=== PATIENT | male | born 1990 | race African-American/Black ===

== ENCOUNTER 2025-01-19 17:43 | Emergency (ER) | payer OTHER, SELFPAY ==
[2025-01-19] MEDS ORDERED: ACETAMINOPHEN 500 MG TAB ONE (18:13)
[2025-01-19] MEDS ORDERED: IBUPROFEN 400 MG TAB ONE (18:14)
[2025-01-19 18:18] LABS: Absolute Eosinophils 0.1 K/uL (0-0.5); Absolute Lymphocytes (CBC) 1.1 K/uL (0.7-4.9); Absolute Monocytes 0.5 K/uL (0.1-1.3); Absolute Neutrophil 3.3 K/uL (1.8-8.0); Basophils % 0.5 % (0-1.3); Eosinophils % 1.7 % (0-4.4); Hematocrit 43.3 % (39.6-49.0); Hemoglobin 14.7 g/dL (13.6-17.9); Lymphocytes % 21.9 % (15.3-44.8); MCH 29.4 pg (27.0-35.0); MCV 86.7 fL (80-100); MPV 7.7 fL (7.6-11.3); Monocytes % 9.1 % (3.3-12.3); Neutrophils % 66.8 % (41.7-73.7); Platelets 270 thou/uL (152-406); Red Cell Distribution Width 13.5 % (12.1-15.2)
[2025-01-19 18:32] LABS: Protime INR 1.15
--- NOTE | 2025-01-19 18:36 | RAD REPORT ---
Extremity Venous Uni Ltd CLINICAL INDICATION: Male, 34 years old.PAIN TECHNIQUE: Complete duplex sonography of the lower extremity veins was performed of the affected limb . The examination included compression for vein patency, color Doppler imaging and flow augmentation in response to distal compression of the distal external iliac, common femoral, femoral, popliteal, peroneal, tibial and great saphenous veins. [id number]. COMPARISON: No prior exams FINDINGS: Duplex sonography imaging demonstrates all deep veins examined to be fully compressible with spontane ous, phasic and augmented flow in the affected limb. IMPRESSION: No evidence of deep venous thrombosis in the left lower extremity.
[2025-01-19 18:37] LABS: Anion Gap 7.7 mEq/L (5.0-15.0); Potassium 3.7 mEq/L (3.5-5.1)
[2025-01-19] MEDS ORDERED: CLINDAMYCIN 900MG/D5W 900 MG/50 ML IVPB IV ONE (19:08)
[2025-01-19] MEDS ORDERED: NA CHLORIDE 0.9% 1,000 ML ONE (19:08)
--- NOTE | 2025-01-19 19:23 | RAD REPORT ---
EXAMINATION: Tib Fib Left VIEWS: As above CLINICAL INDICATION: Male, 34 years old. PAIN COMPARISON: No prior exam. IMPRESSION: No acute fracture. No acute soft tissue abnormality.
--- NOTE | 2025-01-19 19:52 | EDPHYS ---
Physician Documentation [facility] Name: Rudy Brown Age: 34 yrs Sex: Male : 1990 Arrival Date: 01/19/2025 Time: 17:43 Bed 5 Private MD: ED Physician Drew Jauregui HPI: 01/19 18:05 This 34 yrs old Black Male presents to ER via Ambulatory with complaints of Leg cp Swelling. 18:05 The patient presents with swelling, tenderness. The complaints affect the left escalante. cp Context: resulted from an unknown cause. 18:05 Onset: The symptoms/episode began/occurred this past Sunday. Associated signs and cp symptoms: Pertinent positives: swelling, warmth, Pertinent negatives calf tenderness, fever, numbness, trauma. Severity of symptoms: in the emergency department the symptoms are unchanged, despite home interventions. Historical: - Allergies: 17:52 No Known Allergies; ss - PMHx: 17:52 None; ss - PSHx: 17:52 None; ss - Immunization history:: Adult Immunizations up to date. - Infectious Disease History:: Denies. - Social history:: Smoking status: Reported history of juuling and/or vaping. ROS: 18:10 MS/extremity: Positive for swelling, tenderness, of the left escalante, Negative for injury cp or acute deformity, paresthesias, 18:10 Respiratory: Negative for cough, shortness of breath, wheezing, cp Exam: 18:15 Constitutional: The patient appears in no acute distress, alert, awake, cp non-diaphoretic, non-toxic, well developed, well nourished, 18:15 Head/Face: Normocephalic, atraumatic. cp 18:15 Eyes: Periorbital structures: appear normal, Conjunctiva: normal, no exudate, no injection, Sclera: no appreciated abnormality, Lids and lashes: appear normal, bilaterally, 18:15 ENT: External ear(s): are unremarkable, Nose: is normal, Mouth: Lips: moist, Oral mucosa: moist, Posterior pharynx: Airway: no evidence of obstruction, patent, 18:15 Chest/axilla: Inspection: normal, 18:15 Cardiovascular: Rate: normal, Rhythm: regular, 18:15 Respiratory: the patient does not display signs of respiratory distress, Respirations: normal, no use of accessory muscles, no retractions, labored breathing, is not present, Breath sounds: are clear throughout, no decreased breath sounds, no stridor, no wheezing, 18:15 Abdomen/GI: Exam negative for discomfort, distension, guarding, Inspection: abdomen appears normal, 18:15 Back: pain, is absent, ROM is normal, 18:15 Musculoskeletal/extremity: Extremities: noted in the left escalante: mild swelling, tenderness to palpation, mild erythema, Pulses: noted to be 2+ in the left dorsalis pedis artery, 18:15 Neuro: Orientation: to person, place \T\ time. Mentation: is normal, Vital Signs: 17:52 BP 127 / 88; Pulse 95; Resp 17; Temp 100.1(O); Pulse Ox 97% on R/A; Weight 93.44 kg; ss Height 5 ft. 8 in. ; 19:13 BP 109 / 80; Pulse 81; Resp 17; Temp 99.4; Pulse Ox 97% ; Pain 0/10; lg3 20:14 BP 113 / 80; Pulse 91; Resp 17; Temp 99; Pulse Ox 97% ; Pain 0/10; bm8 17:52 Body Mass Index 31.32 (93.44 kg, 172.72 cm) ss 19:13 Pain Scale: Adult lg3 20:14 Pain Scale: Adult bm8 K[place]lotus Coma Score: 19:13 Eye Response: spontaneous(4). Motor Response: obeys commands(6). Verbal Response: lg3 oriented(5). Total: 15. 20:14 Eye Response: spontaneous(4). Motor Response: obeys commands(6). Verbal Response: bm8 oriented(5). Total: 15. MDM: 17:45 Medical Screening Exam initiated yuri 18:30 Differential diagnosis: cellulitis, abscess, DVT, contusion, hematoma. 19:50 Data reviewed: vital signs, nurses notes, lab test result(s), radiologic studies, plain cp films, ultrasound, and as a result, I will discharge patient. 19:50 I considered the following discharge prescriptions or medication management in the emergency department Medications were administered in the Emergency Department. See MAR. Independent interpretation of the following test(s) in the Emergency Department X-Ray: My interpretation is images of left tib/fib negative. Counseling: I had a detailed discussion with the patient and/or guardian regarding the historical points, exam findings, and any diagnostic results supporting the discharge/admit diagnosis, lab results, radiology results, to return to the emergency department if symptoms worsen or persist or if there are any questions or concerns that arise at home. Response to treatment: the patient's symptoms have mildly improved after treatment, and as a result, I will discharge patient. Special discussion: results of blood work showing decreased kidney function tests. recommendation of primary care f/u and will prescribe Bactrim at half dose to decrease incidence of hyperkalemia. 01/19 18:02 Order name: CBC with Diff; Complete Time: 18:45 cp 01/19 18:46 Interpretation: Reviewed. cp 01/19 18:02 Order name: BMP; Complete Time: 18:45 cp 01/19 18:45 Interpretation: Normal except: CL 108; CRE 1.63; GFR 57. cp 01/19 18:02 Order name: PT-INR; Complete Time: 18:45 cp 01/19 18:02 Order name: US Extremity Venous Unilateral Ltd; Complete Time: 18:45 cp 01/19 18:02 Order name: XRAY Tib Fib LEFT; Complete Time: 19:30 cp 01/19 19:30 Interpretation: Report reviewed. cp 01/19 18:02 Order name: IV; Complete Time: 18:08 cp Administered Medications: 18:17 Drug: Ibuprofen PO 800 mg PO once Route: PO; ph 18:57 Follow up: Response: No adverse reaction ph 18:17 Drug: Acetaminophen PO 1000 mg PO once Route: PO; ph 18:57 Follow up: Response: No adverse reaction ph 19:13 Drug: Clindamycin IVPB 900 mg IVPB once over 30 mins; (mix in 50 mL) Route: IVPB; lg3 Infused Over: 30 mins; Site: right antecubital; 20:14 Follow up: Response: No adverse reaction; IV Status: Completed infusion bm8 19:13 Drug: NS 0.9% IV 1000 ml IV at 1000 ml once; to be given as a bolus over 60 minutes lg3 Route: IV; Rate: 1000 ml; Site: right antecubital; 20:14 Follow up: Response: No adverse reaction; IV Status: Completed infusion bm8 Disposition: 01/20 15:35 Co-signature as Attending Physician, Drew Jauregui MD I agree with the assessment and yuri plan of care. 18:04 Chart complete. cp Disposition Summary: 01/19/25 19:51 Discharge Ordered Notes: Location: Home cp Problem: new cp Symptoms: have improved cp Condition: Stable cp Diagnosis - Cellulitis of left lower limb cp Followup: cp - With: Private Physician - When: 2 - 3 days - Reason: Recheck today's complaints Discharge Instructions: - Discharge Summary Sheet cp - Cellulitis, Adult cp Forms: - Medication Reconciliation Form cp - Antibiotic Education cp - Prescription Opioid Use cp - Patient Portal Instructions cp - Leadership Thank You Letter cp Prescriptions: - Clindamycin HCl 300 mg Oral Capsule - take 1 capsule ORAL route every 6 hours for 10 days; 40 capsule; Refills: 0, cp Product Selection Permitted - Bactrim DS 800-160 mg Oral tablet - take 1 tablet ORAL route once daily for 10 days; 10 tablet; Refills: 0, Product cp Selection Permitted Signatures: Dispatcher [employer] Drew Layton MD MD cha Blanchard, Shelby, RN RN ss Nasrin Almanza RN RN Drew Lam, WILFRED PA Hannah Peterson RN RN lg3 Anthony Perea RN bm8 Corrections: (The following items were deleted from the chart) 01/19 17:52 17:52 PMHx: Unable to Obtain; ss ss
--- NOTE | 2025-01-19 19:52 | ER ---
Nurse's Notes [facility] [place], [place] Name: Rudy Brwon Age: 34 yrs Sex: Male : 1990 Arrival Date: 01/19/2025 Time: 17:43 Bed 5 Private MD: Diagnosis: Cellulitis of left lower limb Presentation: 01/19 17:52 Chief complaint: Patient states: LLE swelling noticed Sunday. Hard, tender spot to ss anterior lower extremity. No drainage. Coronavirus screen: Client denies travel out of the [place] in the last 14 days. At this time, the client does not indicate any symptoms associated with coronavirus-19. Ebola Screen: Patient denies travel to an Ebola-affected area in the 21 days before illness onset. Initial Sepsis Screen: Does the patient meet any 2 criteria? No. Patient's initial sepsis screen is negative. Does the patient have a suspected source of infection? No. Patient's initial sepsis screen is negative. Risk Assessment: Do you want to hurt yourself or someone else? Patient reports no desire to harm self or others. Onset of symptoms was January 16, 2025. 17:52 Method Of Arrival: Ambulatory ss 17:52 Acuity: BRITTNEY 3 ss Triage Assessment: 17:54 General: Appears uncomfortable, Behavior is calm, cooperative, appropriate for age. ss Pain: Complains of pain in left leg. Derm: Reports tender spot LLE. Musculoskeletal: Reports pain in left leg. Historical: - Allergies: 17:52 No Known Allergies; ss - PMHx: 17:52 None; ss - PSHx: 17:52 None; ss - Immunization history:: Adult Immunizations up to date. - Infectious Disease History:: Denies. - Social history:: Smoking status: Reported history of juuling and/or vaping. Screenin:15 [facility] ED Fall Risk Assessment (Adult) History of falling in the last 3 months, ph including since admission No falls in past 3 months (0 pts) Confusion or Disorientation No (0 pts) Intoxicated or Sedated No (0 pts) Impaired Gait No (0 pts) Mobility Assist Device Used No (0 pt) Altered Elimination No (0 pt) Score/Fall Risk Level 0 - 2 = Low Risk Oriented to surroundings, Maintained a safe environment, Hourly rounding (assess needs \T\ fall precautionary measures) done. Abuse screen: Denies threats or abuse. Denies injuries from another. Nutritional screening: No deficits noted. Tuberculosis screening: No symptoms or risk factors identified. Assessment: 18:16 General: Appears in no apparent distress. comfortable, well groomed, Behavior is calm, ph cooperative. Pain: Complains of pain in left leg. Neuro: Level of Consciousness is awake, alert, obeys commands, Oriented to person, place, time, situation. Cardiovascular: Capillary refill < 3 seconds in bilateral fingers Patient's skin is warm and dry. Respiratory: Airway is patent Respiratory effort is even, unlabored. GI: No signs and/or symptoms were reported involving the gastrointestinal system. Derm: Skin is pink, warm \T\ dry. Musculoskeletal: Swelling present in left escalante redness also noted. 19:13 Reassessment: Patient appears in no apparent distress at this time. Patient and/or lg3 family updated on plan of care and expected duration. Pain level reassessed. Patient is alert, oriented x 3, equal unlabored respirations, skin warm/dry/pink. Patient denies pain at this time. Patient states feeling better. Patient states symptoms have improved. 20:14 Reassessment: Patient appears in no apparent distress at this time. Patient and/or bm8 family updated on plan of care and expected duration. Pain level reassessed. Patient is alert, oriented x 3, equal unlabored respirations, skin warm/dry/pink. Patient denies pain at this time. Patient states feeling better. Patient states symptoms have improved. Vital Signs: 17:52 BP 127 / 88; Pulse 95; Resp 17; Temp 100.1(O); Pulse Ox 97% on R/A; Weight 93.44 kg; ss Height 5 ft. 8 in. ; 19:13 BP 109 / 80; Pulse 81; Resp 17; Temp 99.4; Pulse Ox 97% ; Pain 0/10; lg3 20:14 BP 113 / 80; Pulse 91; Resp 17; Temp 99; Pulse Ox 97% ; Pain 0/10; bm8 17:52 Body Mass Index 31.32 (93.44 kg, 172.72 cm) ss 19:13 Pain Scale: Adult lg3 20:14 Pain Scale: Adult bm8 Maureen Coma Score: 19:13 Eye Response: spontaneous(4). Motor Response: obeys commands(6). Verbal Response: lg3 oriented(5). Total: 15. 20:14 Eye Response: spontaneous(4). Motor Response: obeys commands(6). Verbal Response: bm8 oriented(5). Total: 15. ED Course: 17:44 Patient arrived in ED. am2 17:45 Drew Jauregui MD is Attending Physician. yuri 17:46 Drew Lam PA is PHCP. cp 17:48 Nasrin Almanza, RN is Primary Nurse. ph 17:52 Arm band placed on Patient placed in an exam room, on a stretcher. ss 17:54 Triage completed. ss 18:15 Patient has correct armband on for positive identification. Placed in gown. Bed in low ph position. Call light in reach. Side rails up X 1. Pulse ox on. NIBP on. Door closed. Noise minimized. Warm blanket given. Pillow given. 18:16 Initial lab(s) drawn, by me, sent to lab. Inserted saline lock: 20 gauge in right ph antecubital area, using aseptic technique. Blood collected. Flushed with 10 mL NS. 18:17 PT-INR Sent. ph 18:17 BMP Sent. ph 18:17 CBC with Diff Sent. ph 18:30 US Extremity Venous Unilateral Ltd In Process Unspecified. EDMS 19:13 XRAY Tib Fib LEFT In Process Unspecified. EDMS 19:13 No provider procedures requiring assistance completed. lg3 20:14 Provided Education on: post er care. bm8 20:14 IV discontinued, intact, bleeding controlled, No redness/swelling at site. Pressure bm8 dressing applied. Administered Medications: 18:17 Drug: Ibuprofen PO 800 mg PO once Route: PO; ph 18:57 Follow up: Response: No adverse reaction ph 18:17 Drug: Acetaminophen PO 1000 mg PO once Route: PO; ph 18:57 Follow up: Response: No adverse reaction ph 19:13 Drug: Clindamycin IVPB 900 mg IVPB once over 30 mins; (mix in 50 mL) Route: IVPB; lg3 Infused Over: 30 mins; Site: right antecubital; 20:14 Follow up: Response: No adverse reaction; IV Status: Completed infusion bm8 19:13 Drug: NS 0.9% IV 1000 ml IV at 1000 ml once; to be given as a bolus over 60 minutes lg3 Route: IV; Rate: 1000 ml; Site: right antecubital; 20:14 Follow up: Response: No adverse reaction; IV Status: Completed infusion bm8 Medication: 18:15 VIS not applicable for this client. ph Outcome: 19:51 Discharge ordered by . cp 20:14 Discharged to home ambulatory, bm8 20:14 Condition: stable 20:14 Discharge instructions given to patient, family, Instructed on discharge instructions, follow up and referral plans. no drinking with medication, no driving heavy equipment, medication usage, safety practices, Demonstrated understanding of instructions, follow-up care, medications, Prescriptions given X 2, 20:15 Patient left the ED. bm8 Signatures: Dispatcher [employer] EDMS Drew Jauregui MD MD cha Blanchard, Shelby, RN RN ss Nasrin Almanza RN RN Drew Evans PA PA cp Moreno, Amanda am2 Hannah Childs RN RN lg3 Anthony Perea RN RN bm8 Corrections: (The following items were deleted from the chart) 17:52 17:52 PMHx: Unable to Obtain; ss ss 17:55 17:52 Chief complaint: Patient states: LLE swelling noticed Daniele. Hard tender spot to ss anterior lower extremity. No drainage ss
[2025-01-19 20:24] VITALS: O2SAT 97
[2025-01-19 20:36] VITALS: BP 113/80; TEMP 99
== END 2025-01-19 20:15 | disposition home or self-care (01) ==
LOC: ER 17:43
DX: L03.116 Cellulitis of left lower limb (principal)
CPT/HCPCS: 96365; 85025; 80048; 36415; 85610; 73590; 93971; 99284; J7030